=== PATIENT | female | born 1970 | race Caucasian/White ===

== ENCOUNTER → 2016-06-01 | Outpatient (CLI) | payer OTHER ==
[2016-06-01 15:30] LABS: FREE T4 1.33 NG/DL (0.76-1.46)
== END ==
LOC: M WUC 12:13
PROVIDERS: ATTEND Physician Assistant Medical
DX: E03.9 Hypothyroidism, unspecified (principal)

== ENCOUNTER → 2016-09-27 | Outpatient (CLI) | payer OTHER ==
[2016-09-27 12:32] LABS: FREE T4 0.99 NG/DL (0.76-1.46)
== END ==
LOC: M WUC 10:06
PROVIDERS: ATTEND Physician Assistant Medical
DX: E03.9 Hypothyroidism, unspecified (principal)

== ENCOUNTER 2017-04-11 11:25 | Emergency (ER) | payer OTHER ==
[~2017-04-11] VITALS: Ht 165.1 cm; Wt 89.5 kg
[2017-04-11] MEDS ORDERED: VITA100067 PO (11:35)
[2017-04-11] MEDS ORDERED: OMEP20CA3 PO (11:35)
[2017-04-11] MEDS ORDERED: ZOLO50TA PO (11:35)
[2017-04-11] MEDS ORDERED: LEVO75TA4 PO (11:35)
[2017-04-11] MEDS ORDERED: methylPREDNISolone INJ 125 MG/2 ML VIAL (J2930) IM ONE (12:45)
--- NOTE | 2017-04-11 13:27 | REP ---
LUMBOSACRAL SPINE: Five views of the lumbosacral spine performed. No compression fracture seen. There is no spondylolysis or spondylolisthesis. There is mild diffuse spurring. There is mild disc space narrowing at L3-4 and L4-5. There is sclerosis at the posterior facet joints. The posterior elements are intact. IMPRESSION: Mild degenerative changes. No fracture or dislocation. Signed by Inocencio Calzada MD 04/11/2017 04:55 P
[2017-04-11] MEDS ORDERED: VALI5TAB PO (13:44)
[2017-04-11] MEDS ORDERED: PRED20TA PO (13:44)
[2017-04-11 14:04] VITALS: BP 115/71
== END 2017-04-11 14:07 | disposition home or self-care (01) ==
LOC: M ED 11:25
DX: S39.012A Strain of muscle, fascia and tendon of lower back, initial encounter (principal); M62.830 Muscle spasm of back; E03.9 Hypothyroidism, unspecified; F33.9 Major depressive disorder, recurrent, unspecified; M51.9 Unspecified thoracic, thoracolumbar and lumbosacral intervertebral disc disorder; F17.210 Nicotine dependence, cigarettes, uncomplicated; Z79.899 Other long term (current) drug therapy; Z88.2 Allergy status to sulfonamides; X58.XXXA Exposure to other specified factors, initial encounter; Y92.89 Other specified places as the place of occurrence of the external cause; Y93.89 Activity, other specified; Y99.8 Other external cause status
CPT/HCPCS: 72110; 96372; 99283; J2930; J3360

== ENCOUNTER 2017-09-24 10:39 | Emergency (ER) | payer OTHER ==
[2017-09-24] MEDS: PERCOCET 5MG/325MG TAB PO (11:28)
[2017-09-24] MEDS: METHOCARBAMOL 750 MG TAB PO (11:28)
== END 2017-09-24 11:59 | disposition home or self-care (01) ==
LOC: M ED 10:39
DX: S39.012A Strain of muscle, fascia and tendon of lower back, initial encounter (principal); X50.0XXA Overexertion from strenuous movement or load, initial encounter; Y92.89 Other specified places as the place of occurrence of the external cause; M54.9 Dorsalgia, unspecified; G89.29 Other chronic pain; K21.9 Gastro-esophageal reflux disease without esophagitis; E03.9 Hypothyroidism, unspecified; Z88.2 Allergy status to sulfonamides; F17.210 Nicotine dependence, cigarettes, uncomplicated; Z79.899 Other long term (current) drug therapy
CPT/HCPCS: 99283

== ENCOUNTER → 2018-01-17 | Outpatient (REF) | payer OTHER | LOC: M SFHCLERA 15:30 | DX: J02.9 Acute pharyngitis, unspecified (principal) ==

== ENCOUNTER → 2018-03-18 | Outpatient (CLI) | payer OTHER | LOC: M WHC 15:31 | DX: Z12.31 Encounter for screening mammogram for malignant neoplasm of breast (principal) | CPT/HCPCS: 77067 ==

== ENCOUNTER 2018-04-06 11:27 | Emergency (ER) | payer OTHER | END 2018-04-06 12:34 | disposition home or self-care (01) | LOC: M ED 11:27 | DX: S43.102A Unspecified dislocation of left acromioclavicular joint, initial encounter (principal); W50.0XXA Accidental hit or strike by another person, initial encounter; Y92.89 Other specified places as the place of occurrence of the external cause; Y99.0 Civilian activity done for income or pay; E03.9 Hypothyroidism, unspecified; K21.9 Gastro-esophageal reflux disease without esophagitis; F33.9 Major depressive disorder, recurrent, unspecified; M54.9 Dorsalgia, unspecified; Z79.899 Other long term (current) drug therapy; Z79.890 Hormone replacement therapy; Z88.2 Allergy status to sulfonamides; Z91.048 Other nonmedicinal substance allergy status | CPT/HCPCS: 73030 ==

== ENCOUNTER 2018-07-03 12:25 | Emergency (ER) | payer OTHER, BC ==
[~2018-07-03] VITALS: Ht 170.2 cm; Wt 90.9 kg
[~2018-07-03 12:25] MED LIST: LEVO175T2; LEVO75TA4 PO; NORCOTAB PO; OMEP20CA3 PO; OMEP40CA2; PERC5TAB12 PO; PRED20TA PO; ROBA500T PO; SERT-138 PO; VALI5TAB PO; VITA100067 PO; ZOLO50TA PO
[2018-07-03] MEDS ORDERED: VITA100072 PO (12:46)
--- NOTE | 2018-07-03 12:54 | REP ---
CT Head without contrast HISTORY: Left side weakness COMPARISON: None There is no intraparenchymal hemorrhage, acute infarct, mass or midline shift. The ventricular system is normal in appearance. There is no extra cerebral collection. There is no fracture. The visualized sinuses are clear. IMPRESSION: There is no intracranial lesion. Electronically Signed by Nato Benavides MD 07/03/2018 12:45 P
[2018-07-03 13:22] LABS: BASO # 0.1 10^3/uL (0.0-0.2); BASO % 0.6 % (0.0-1.0); EOS # 0.3 10^3/uL (0.0-0.50); EOS % 3.1 % (0.0-3.0); HEMATOCRIT 41.4 % (36.0-47.0); HEMOGLOBIN 13.9 g/dl (12.0-15.5); LYMPH # 3.5 10^3/uL (1.5-4.5); MEAN CORPUSCULAR HEMOGLOBIN 30.5 pg (27.0-33.0); MEAN CORPUSCULAR HGB CONC 33.6 g/dl (32.0-36.5); MEAN CORPUSCULAR VOLUME 90.8 fl (80.0-96.0); MONO # 0.8 10^3/uL (0.0-0.8); MONO % 7.7 % (0.0-5.0); NEUTROPHILS # 5.1 10^3/uL (1.8-7.7); NEUTROPHILS % 52.2 % (36.0-66.0); PLATELET COUNT, AUTOMATED 338 10^3/uL (150-450); RED BLOOD COUNT 4.56 10^6/uL (4.00-5.40); WHITE BLOOD COUNT 9.7 10^3/uL (4.0-10.0)
--- NOTE | 2018-07-03 13:33 | REP ---
PORTABLE CHEST: AP portable view of the chest was performed. There is minor linear fibro atelectasis in each lung base with no evidence of infiltrate. Heart is normal in size. Mediastinal silhouette is unremarkable. Visualized osseous structures are intact. Electronically Signed by Inocencio Calzada MD 07/03/2018 05:31 P
[2018-07-03 13:46] LABS: BLOOD UREA NITROGEN 13 MG/DL (7-18); CALCIUM LEVEL 9.1 MG/DL (8.5-10.1); CARBON DIOXIDE LEVEL 25 MEQ/L (21-32); CHLORIDE LEVEL 109 MEQ/L (98-107); CPK CREATINE PHOSPHOKINASE 147 U/L (26-192); CREATININE FOR GFR 0.89 MG/DL (0.55-1.30); GLOMERULAR FILTRATION RATE > 60.0 (>58); GLUCOSE, FASTING 89 MG/DL (70-100); MB/CK RELATIVE INDEX 1.02 (< OR =4); POTASSIUM SERUM 4.2 MEQ/L (3.5-5.1); SODIUM LEVEL 140 MEQ/L (136-145); TROPONIN I 0.02 NG/ML (< 0.10)
[2018-07-03 13:48] LABS: INR 0.9; PROTHROMBIN TIME 12.2 SECONDS (12.1-14.4)
[2018-07-03 13:51] LABS: PARTIAL THROMBOPLASTIN TIME 30.2 SECONDS (25.4-37.6)
--- NOTE | 2018-07-03 15:26 | REP ---
MRA BRAIN WITHOUT CONTRAST: HISTORY: Infarction. 3D [id number] MR angiography was performed at the level of the [place]. There is no aneurysm, arteriovenous malformation or atherosclerotic lesion. Major intracranial vessels are patent. The vertebral arteries are equal in size. IMPRESSION:Normal MRA brain. Electronically Signed by Nato Benavides MD 07/03/2018 03:37 P
--- NOTE | 2018-07-03 15:33 | REP ---
MR BRAIN WITHOUT CONTRAST: HISTORY: Infarction. COMPARISON: CT 07/03/2018. Several punctate areas of increased signal intensity on T2-weighted images are present in the periventricular and subcortical white matter and rosa isela. This represents small vessel ischemic disease. There is no intraparenchymal hemorrhage, infarct, mass or midline shift. The sella turcica is partially empty. The ventricular system is normal in appearance. There is no extracerebral collection. The sinuses are clear. IMPRESSION: Minimal small vessel ischemic disease. Electronically Signed by Nato Benavides MD 07/03/2018 03:38 P
[2018-07-03 15:48] VITALS: BP 133/79
--- NOTE | 2018-07-03 20:57 | ECGEPIP ---
Stationary ECG Study [facility] [place] - ED Test Date: 2018-07-03 Pat Name: JIMMY ROSS Department: Room: - Gender: F [employer] Analyst: TC : 1970 Requested By: ONDINA Crum Order Number: [id number] Reading MD: Jeannette Cunningham Measurements Intervals [place] Rate: 71 P: 40 VT: 174 QRS: 13 QRSD: 110 T: 31 QT: 396 QTc: 431 Interpretive Statements SINUS RHYTHM INCOMPLETE RIGHT BUNDLE BRANCH BLOCK NO PRIOR FOR COMPARISON Electronically Signed On 07-03-2018 20:57:09 EST by Jeannette Cunningham
== END 2018-07-03 16:04 | disposition home or self-care (01) ==
LOC: M ED 12:25
DX: R20.9 Unspecified disturbances of skin sensation (principal); I45.19 Other right bundle-branch block; K21.9 Gastro-esophageal reflux disease without esophagitis; M54.9 Dorsalgia, unspecified; F32.9 Major depressive disorder, single episode, unspecified; Z72.0 Tobacco use; Z79.899 Other long term (current) drug therapy; Z88.2 Allergy status to sulfonamides; Z91.89 Other specified personal risk factors, not elsewhere classified

== ENCOUNTER 2018-11-08 18:39 | Emergency (ER) | payer OTHER, BC ==
[~2018-11-08] VITALS: Ht 167.6 cm; Wt 86.4 kg
[~2018-11-08 18:39] MED LIST changes: +HYDR-3715 PO; +IBUP200C25 PO; +IBUP80TA PO; +NORC1TAB7 PO; -NORCOTAB PO; +VITA100018 PO
[2018-11-08] MEDS ORDERED: BUPR150T3 (18:44)
[2018-11-08] MEDS ORDERED: GABA-843 (18:44)
[2018-11-08] MEDS ORDERED: diazePAM 5 MG TAB PO ONE (19:30)
[2018-11-08] MEDS ORDERED: KETOROLAC 60 MG/2 ML VIAL (J1885) IM ONE (19:30)
[2018-11-08 22:04] VITALS: BP 132/68
--- NOTE | 2018-11-10 09:18 | REP ---
LUMBAR SPINE CT STUDY: REPEAT DICTATION. HISTORY: Low back pain. Lifting injury. Left radicular pain. Preliminary report is provided at time of examination by [facility]. Comparison radiographs are from April 11, 2017. TECHNIQUE: Helical scanning is acquired. 4 mm axial images are reformatted. Coronal and sagittal MPR images are generated. CT FINDINGS: Lumbar vertebral body heights are preserved. No fracture or collapse is seen. There is mild diffuse discogenic spurring anteriorly at each lumbar level as seen on the radiographs. Alignment is normal. Pedicles and posterior elements are intact. There is no evidence of spondylolysis or spondylolisthesis. The visualized SI joints and upper sacrum are unremarkable. Axial and sagittal images at the L1-2 level show no significant abnormality. At L2-3, there is mild central disc bulging. Canal size is borderline. At L3-4, there is mild diffuse disc bulging and borderline canal size. No focal disc protrusion or neural foraminal narrowing. At L4-5 , there is mild diffuse disc bulging with a triangular shape to the thecal sac. Borderline canal size. No focal disc herniation is seen. There is mild facet hypertrophy bilaterally at L4-5, right more so than left. At L5-S1, there is mild facet hypertrophy. No other finding. IMPRESSION: Degenerative spondylosis changes. Borderline canal size as above. No acute bony abnormality. Electronically Signed by Keon Mcginnis MD 11/10/2018 10:26 A
--- NOTE | 2018-11-10 12:46 | ED PDOC ---
Post-Departure Follow-Up levon lamas faxed formalmreport of ct ls spine for fu Guzman Quezada MD Nov 10, 2018 12:46
== END 2018-11-08 22:05 | disposition home or self-care (01) ==
LOC: M ED 18:39
DX: M48.07 Spinal stenosis, lumbosacral region (principal); E03.9 Hypothyroidism, unspecified; K21.9 Gastro-esophageal reflux disease without esophagitis; F33.9 Major depressive disorder, recurrent, unspecified; Z79.899 Other long term (current) drug therapy; Z79.890 Hormone replacement therapy; Z88.2 Allergy status to sulfonamides; F17.210 Nicotine dependence, cigarettes, uncomplicated
CPT/HCPCS: 72131; 96372; 99283; J1885

== ENCOUNTER 2019-02-04 11:45 | Emergency (ER) | payer BC, OTHER ==
[~2019-02-04] VITALS: Ht 167.6 cm; Wt 89.1 kg
[~2019-02-04 11:45] MED LIST changes: +BUPR150T3; +GABA-843; -OMEP20CA3 PO; +OMEP20CA4 PO
[2019-02-04] MEDS ORDERED: ESCI20TA (11:59)
[2019-02-04] MEDS ORDERED: ALPR0.25 (11:59)
[2019-02-04 13:24] LABS: BASO # 0.1 10^3/uL (0.0-0.2); BASO % 0.6 % (0.0-1.0); EOS # 0.1 10^3/uL (0.0-0.5); EOS % 0.7 % (0.0-3.0); HEMOGLOBIN 14.2 g/dl (12.0-15.5); LYMPH # 2.2 10^3/uL (1.5-5.0); LYMPH % 21.6 % (24.0-44.0); MEAN CORPUSCULAR HEMOGLOBIN 31.5 pg (27.0-33.0); MEAN CORPUSCULAR HGB CONC 34.6 g/dl (32.0-36.5); MEAN CORPUSCULAR VOLUME 90.9 fl (80.0-96.0); MONO # 0.3 10^3/uL (0.0-0.8); MONO % 3.3 % (0.0-5.0); NEUTROPHILS # 7.4 10^3/uL (1.5-8.5); NEUTROPHILS % 73.4 % (36.0-66.0); PLATELET COUNT, AUTOMATED 318 10^3/uL (150-450); RED BLOOD COUNT 4.51 10^6/uL (4.00-5.40); WHITE BLOOD COUNT 10.1 10^3/uL (4.0-10.0)
[2019-02-04 13:44] LABS: ALBUMIN 4.1 GM/DL (3.2-5.2); ALT/SGPT 35 U/L (12-78); BILIRUBIN,DIRECT < 0.1 MG/DL (0.0-0.2); BILIRUBIN,TOTAL 0.3 MG/DL (0.2-1.0); BLOOD UREA NITROGEN 9 MG/DL (7-18); CALCIUM LEVEL 9.2 MG/DL (8.5-10.1); CARBON DIOXIDE LEVEL 28 MEQ/L (21-32); CHLORIDE LEVEL 109 MEQ/L (98-107); CREATININE FOR GFR 0.88 MG/DL (0.55-1.30); GLOMERULAR FILTRATION RATE > 60.0 (>58); GLUCOSE, FASTING 97 MG/DL (70-100); POTASSIUM SERUM 4.4 MEQ/L (3.5-5.1); SODIUM LEVEL 143 MEQ/L (136-145); TOTAL PROTEIN 6.7 GM/DL (6.4-8.2)
[2019-02-04 14:15] VITALS: BP 122/75
--- NOTE | 2019-02-04 14:18 | REP ---
CHEST, TWO VIEWS: COMPARISON: 07/03/2018 There is no evidence of acute infiltrate. No pleural effusion is seen. The heart is normal in size. The mediastinal silhouette is unremarkable. The visualized osseous structures are intact. IMPRESSION: No acute pulmonary disease. Electronically Signed by Inocencio Calzada MD 02/05/2019 09:33 A
[2019-02-04] MEDS ORDERED: FLON1SPR NARES (14:26)
[2019-02-04] MEDS ORDERED: BENA25CA4 PO (14:26)
[2019-02-04] MEDS ORDERED: PRED10TA2 PO (14:26)
[2019-02-04] MEDS ORDERED: PEPC1TAB5 PO (14:26)
== END 2019-02-04 14:52 | disposition home or self-care (01) ==
LOC: EDBD 11:45 → M ED 11:45
DX: T36.0X1A Poisoning by penicillins, accidental (unintentional), initial encounter (principal); R21 Rash and other nonspecific skin eruption; L50.9 Urticaria, unspecified; R06.02 Shortness of breath; X58.XXXA Exposure to other specified factors, initial encounter; Y92.89 Other specified places as the place of occurrence of the external cause; J06.9 Acute upper respiratory infection, unspecified; K21.9 Gastro-esophageal reflux disease without esophagitis; F17.210 Nicotine dependence, cigarettes, uncomplicated; Z88.2 Allergy status to sulfonamides; Z79.899 Other long term (current) drug therapy

== ENCOUNTER 2019-04-03 17:46 | Emergency (ER) | payer BC, OTHER ==
[~2019-04-03] VITALS: Ht 167.6 cm; Wt 90.0 kg
[~2019-04-03 17:46] MED LIST changes: +ALPR0.25; +BENA25CA4 PO; +ESCI20TA; +FLON1SPR NARES; -OMEP40CA2; +OMEP40CA97; +PEPC1TAB5 PO; +PRED10TA2 PO
[2019-04-03 17:47] VITALS: BP 129/93
[2019-04-03] MEDS ORDERED: VALA1TAB2 PO (18:01)
[2019-04-03] MEDS ORDERED: NORCO, ANEXSIA 5/325MG TABLET (HYDROcodone/ACETAMINOPHEN) PO ONE (18:15)
--- NOTE | 2019-04-03 18:34 | REP ---
Right ankle four views: There are no comparisons. Suspect there is soft tissue edema laterally. This should be confirmed clinically. There is no fracture or dislocation. The mortise is symmetric. Mineralization is normal. There are no calcifications or foreign bodies. There is a tiny calcaneal plantar spur. Electronically Signed by Inocencio Roque MD 04/03/2019 06:25 P
== END 2019-04-03 19:42 | disposition home or self-care (01) ==
LOC: M ED 17:46
DX: S93.401A Sprain of unspecified ligament of right ankle, initial encounter (principal); Y04.8XXA Assault by other bodily force, initial encounter; Y92.198 Other place in other specified residential institution as the place of occurrence of the external cause; Y99.0 Civilian activity done for income or pay; K21.9 Gastro-esophageal reflux disease without esophagitis; F32.9 Major depressive disorder, single episode, unspecified; F17.210 Nicotine dependence, cigarettes, uncomplicated; Z88.0 Allergy status to penicillin; Z88.2 Allergy status to sulfonamides; Z91.048 Other nonmedicinal substance allergy status; Z79.899 Other long term (current) drug therapy

== ENCOUNTER → 2019-07-01 | Outpatient (CLI) | payer BC ==
[~2019-07-01] MED LIST changes: +OMEP1CAP73 PO; -OMEP20CA4 PO; +VALA1TAB64 PO
== END ==
LOC: M SLEEP 19:45
PROVIDERS: ATTEND Nurse Practitioner Adult Health
DX: G47.33 Obstructive sleep apnea (adult) (pediatric) (principal)

== ENCOUNTER → 2019-10-24 | Outpatient (CLI) | payer BC ==
[~2019-10-24] MED LIST changes: +CVS50CAP PO; +PHEN15CA PO; +VALA1TAB5 PO; -VALA1TAB64 PO; +VITA30004 PO; +VITAD1000T PO
== END ==
LOC: M LABSMTC 10:23
PROVIDERS: ATTEND Anesthesiology
DX: Z01.818 Encounter for other preprocedural examination (principal); Z11.59 Encounter for screening for other viral diseases
CPT/HCPCS: C9803; U0003

== ENCOUNTER 2019-10-27 11:49 | Day surgery (SDC) | payer BC ==
[~2019-10-27] VITALS: Ht 170.2 cm; Wt 90.7 kg
[~2019-10-27 11:49] MED LIST changes: +NS 1,000 ML IV SCH
[2019-10-27] MEDS ORDERED: propofoL 500 MG/50 ML VIAL As Ordered ONE (12:59)
[2019-10-27] MEDS ORDERED: fentaNYL 100 MCG/2 ML INJECTION (J3010) As Ordered ONE (12:59)
[2019-10-27] MEDS ORDERED: LIDOCAINE 2% 100MG/5ML SDV (FOR ANES.) As Ordered ONE (12:59)
--- NOTE | 2019-10-27 13:38 | ROOR ---
Patient Name: Gem Brown Procedure Date: 10/27/2019 12:54 PM Date of : 1970 Age: 49 Room: [facility] Gender: Female Note Status: Finalized Procedure: Upper GI endoscopy Indications: Heartburn, Suspected gastro-esophageal reflux disease Providers: Dominic Patel MD Referring MD: Edgar Fletcher Requesting Provider: Medicines: Monitored Anesthesia Care Complications: No immediate complications. Procedure: Pre-Anesthesia Assessment: - Prior to the procedure, a History and Physical was performed, and patient medications and allergies were reviewed. The patient is competent. The risks and benefits of the procedure and the sedation options and risks were discussed with the patient. All questions were answered and informed consent was obtained. Patient identification and proposed procedure were verified by the physician, the nurse and the anesthesiologist in the procedure room. Mental Status Examination: alert and oriented. Airway Examination: normal oropharyngeal airway and neck mobility. Respiratory Examination: clear to auscultation. CV Examination: normal. Prophylactic Antibiotics: The patient does not require prophylactic antibiotics. Prior Anticoagulants: The patient has taken no previous anticoagulant or antiplatelet agents. ASA Grade Assessment: II - A patient with mild systemic disease. After reviewing the risks and benefits, the patient was deemed in satisfactory condition to undergo the procedure. The anesthesia plan was to use monitored anesthesia care (MAC). Immediately prior to administration of medications, the patient was re-assessed for adequacy to receive sedatives. The heart rate, respiratory rate, oxygen saturations, blood pressure, adequacy of pulmonary ventilation, and response to care were monitored throughout the procedure. The physical status of the patient was re-assessed after the procedure. The Endoscope was introduced through the mouth, and advanced to the second part of duodenum. The upper GI endoscopy was accomplished without difficulty. The patient tolerated the procedure well. Findings: The Z-line was irregular and was found 35 cm from the incisors. A small hiatal hernia was present. Scattered mild inflammation characterized by erythema, friability and granularity was found in the gastric antrum. Biopsies were taken with a cold forceps for Helicobacter pylori testing. Verification of patient identification for the specimen was done by the physician and nurse using the patient's name, date and medical record number. Estimated blood loss was minimal. The duodenal bulb and second portion of the duodenum were normal. Impression: - Z-line irregular, 35 cm from the incisors. - Small hiatal hernia. - Gastritis. Biopsied. - Normal duodenal bulb and second portion of the duodenum. Recommendation: - Patient has a contact number available for emergencies. The signs and symptoms of potential delayed complications were discussed with the patient. Return to normal activities tomorrow. Written discharge instructions were provided to the patient. - Resume previous diet. - Follow an antireflux regimen. - Await pathology results. - Telephone GI clinic for pathology results in 2 weeks. - Return to primary care physician. Dominic Patel MD Dominic Patel MD 10/27/2019 1:38:30 PM Electronically signed by Dominic Patel MD Number of Addenda: 0 Note Initiated On: 10/27/2019 12:54 PM Estimated Blood Loss: Estimated blood loss was minimal.
[2019-10-27 13:45] VITALS: BP_SYST 132
--- NOTE | 2019-10-27 14:24 | ROOR ---
Patient Name: Gem Brown Procedure Date: 10/27/2019 12:55 PM Date of : 1970 Age: 49 Room: [facility] Gender: Female Note Status: Finalized Procedure: Colonoscopy Indications: Screening for colorectal malignant neoplasm Providers: Dominic Patel MD Referring MD: Edgar Fletcher Requesting Provider: Medicines: Monitored Anesthesia Care Complications: No immediate complications. Procedure: Pre-Anesthesia Assessment: - Prior to the procedure, a History and Physical was performed, and patient medications and allergies were reviewed. The patient is competent. The risks and benefits of the procedure and the sedation options and risks were discussed with the patient. All questions were answered and informed consent was obtained. Patient identification and proposed procedure were verified by the physician, the nurse and the anesthesiologist in the procedure room. Mental Status Examination: alert and oriented. Airway Examination: normal oropharyngeal airway and neck mobility. Respiratory Examination: clear to auscultation. CV Examination: normal. Prophylactic Antibiotics: The patient does not require prophylactic antibiotics. Prior Anticoagulants: The patient has taken no previous anticoagulant or antiplatelet agents. ASA Grade Assessment: II - A patient with mild systemic disease. After reviewing the risks and benefits, the patient was deemed in satisfactory condition to undergo the procedure. The anesthesia plan was to use monitored anesthesia care (MAC). Immediately prior to administration of medications, the patient was re-assessed for adequacy to receive sedatives. The heart rate, respiratory rate, oxygen saturations, blood pressure, adequacy of pulmonary ventilation, and response to care were monitored throughout the procedure. The physical status of the patient was re-assessed after the procedure. The Colonoscope was introduced through the anus and advanced to the terminal ileum, with identification of the appendiceal orifice and IC valve. The colonoscopy was performed without difficulty. The patient tolerated the procedure well. The quality of the bowel preparation was good except the ascending colon was poor. The terminal ileum, ileocecal valve, appendiceal orifice, and rectum were photographed. Scope insertion time was 3 minutes. Scope withdrawal time was 9 minutes. The total duration of the procedure was 12 minutes. Findings: The perianal and digital rectal examinations were normal. The terminal ileum appeared normal. Copious quantities of stool was found from transverse colon to cecum, interfering with visualization. Lavage of the area was performed using a large amount of sterile water, resulting in incomplete clearance with fair visualization. Two sessile polyps were found in the descending colon. The polyps were 5 to 6 mm in size. These polyps were removed with a cold snare. Resection and retrieval were complete. Verification of patient identification for the specimen was done by the physician and nurse using the patient's name, date and medical record number. Estimated blood loss was minimal. Non-bleeding external and internal hemorrhoids were found during retroflexion. The hemorrhoids were medium-sized. Impression: - The examined portion of the ileum was normal. - Stool from transverse colon to cecum. - Two 5 to 6 mm polyps in the descending colon, removed with a cold snare. Resected and retrieved. - Non-bleeding external and internal hemorrhoids. Recommendation: - Patient has a contact number available for emergencies. The signs and symptoms of potential delayed complications were discussed with the patient. Return to normal activities tomorrow. Written discharge instructions were provided to the patient. - High fiber diet. - Continue present medications. - Await pathology results. - Repeat colonoscopy in 1 year because the bowel preparation was poor and for surveillance based on pathology results. - Telephone GI clinic for pathology results in 2 weeks. - Return to GI clinic in 1 year. - Return to primary care physician. Dominic Patel MD Dominic Patel MD 10/27/2019 2:24:04 PM Electronically signed by Dominic Patel MD Number of Addenda: 0 Note Initiated On: 10/27/2019 12:55 PM Estimated Blood Loss: Estimated blood loss was minimal.
== END 2019-10-27 14:09 | disposition home or self-care (01) ==
LOC: M OPP 11:49
PROVIDERS: ATTEND Internal Medicine Gastroenterology
DX: Z12.11 Encounter for screening for malignant neoplasm of colon (principal); K63.5 Polyp of colon; K64.8 Other hemorrhoids; K22.8 Other specified diseases of esophagus; K44.9 Diaphragmatic hernia without obstruction or gangrene; K29.70 Gastritis, unspecified, without bleeding; R12 Heartburn; F17.210 Nicotine dependence, cigarettes, uncomplicated; G47.30 Sleep apnea, unspecified; Z79.899 Other long term (current) drug therapy; Z88.0 Allergy status to penicillin; Z88.2 Allergy status to sulfonamides
CPT/HCPCS: 43239; 45385; 88305; J3010

== ENCOUNTER 2020-03-11 08:03 | Emergency (ER) | payer BC ==
[~2020-03-11] VITALS: Ht 172.7 cm; Wt 97.7 kg
[~2020-03-11 08:03] MED LIST changes: +D31000TA2 PO; -NS 1,000 ML IV SCH; -VITAD1000T PO
[2020-03-11] MEDS ORDERED: B-12100010 PO (08:12)
[2020-03-11] MEDS ORDERED: LIDOCAINE 5% (LIDODERM) PATCH TD ONE (09:15)
[2020-03-11] MEDS ORDERED: KETOROLAC 60MG 2ML VIAL IM ONE (09:15)
[2020-03-11] MEDS ORDERED: methylPREDNISolone 125MG 2ML VIAL IM ONE (09:15)
[2020-03-11 10:01] VITALS: BP 118/73
[2020-03-11] MEDS ORDERED: **NOTE PATIENT COMMENT** MISC XX ONE (21:00)
== END 2020-03-11 10:03 | disposition home or self-care (01) ==
LOC: M ED 08:03
DX: M54.5 Low back pain (principal); G89.29 Other chronic pain; F17.210 Nicotine dependence, cigarettes, uncomplicated; Z88.0 Allergy status to penicillin; Z88.2 Allergy status to sulfonamides; Z79.899 Other long term (current) drug therapy
CPT/HCPCS: 96372; 99283; J1885; J2930

== ENCOUNTER → 2020-04-26 | Outpatient (CLI) | payer BC ==
[~2020-04-26] MED LIST changes: +B-12100010 PO
--- NOTE | 2020-04-28 06:25 | REP ---
INDICATION: CONTUSION OF LEFT WRIST COMPARISON: None. TECHNIQUE: AP, lateral, bilateral oblique views left wrist. FINDINGS: There is no evidence for acute fracture or dislocation. There appears to be an 8 mm cystic appearing lesion within the triquetrum displaying internal septations and mild sclerotic borders. Finding is likely benign and differential diagnosis includes but is not limited to aneurysmal bone cyst as well as interosseous ganglion. IMPRESSION: No obvious acute fracture or dislocation. Complex cystic lesion in the triquetrum. No prior examinations are available for comparison. Consider MRI for further investigation. <Electronically signed by Lebron Houston > 04/28/20 [id number]
== END ==
LOC: M WUC 12:56
PROVIDERS: ATTEND Physician Assistant
DX: M85.442 Solitary bone cyst, left hand (principal); S60.212A Contusion of left wrist, initial encounter; X58.XXXA Exposure to other specified factors, initial encounter; Y92.9 Unspecified place or not applicable

== ENCOUNTER 2020-08-30 13:14 | Emergency (ER) | payer BC ==
[~2020-08-30] VITALS: Ht 170.2 cm; Wt 89.2 kg
[~2020-08-30 13:14] MED LIST changes: +BUPR150T12; -BUPR150T3; -ESCI20TA; +ESCI20TA16; +GABA-282; -GABA-843
[2020-08-30] MEDS ORDERED: OMEP-218 (13:29)
[2020-08-30] MEDS ORDERED: VENL75CA47 (13:29)
[2020-08-30] MEDS ORDERED: PHEN-239 (13:29)
[2020-08-30] MEDS ORDERED: LEVO150T7 (13:29)
[2020-08-30] MEDS ORDERED: CYCL-707 (13:30)
[2020-08-30] MEDS ORDERED: IBUP-1022 PO (14:39)
[2020-08-30 14:45] VITALS: BP 136/88
== END 2020-08-30 15:03 | disposition home or self-care (01) ==
LOC: M ED 13:14
DX: M65.242 Calcific tendinitis, left hand (principal); F17.200 Nicotine dependence, unspecified, uncomplicated; Z88.0 Allergy status to penicillin; Z88.2 Allergy status to sulfonamides; Z79.899 Other long term (current) drug therapy

== ENCOUNTER 2020-11-27 08:22 | Emergency (ER) | payer BC, OTHER ==
[~2020-11-27] VITALS: Ht 170.2 cm; Wt 89.8 kg
[~2020-11-27 08:22] MED LIST changes: +CYCL-707; +IBUP-1022 PO; +LEVO150T7; +OMEP-218; +OMEP40CA4; -OMEP40CA97; +PHEN-239; +VENL75CA47
[2020-11-27] MEDS ORDERED: CYCLOBENZAPRINE 10MG TABLET PO ONE (10:15)
[2020-11-27] MEDS ORDERED: predniSONE 20 MG TAB PO ONE (10:15)
[2020-11-27] MEDS ORDERED: LIDOCAINE 5% (LIDODERM) PATCH TD ONE (10:15)
[2020-11-27] MEDS ORDERED: ACETAMINOPHEN 500 MG TAB PO ONE (10:15)
--- NOTE | 2020-11-27 11:22 | REP ---
INDICATION: fall COMPARISON: 07/03/2018 TECHNIQUE: Axial noncontrast images from the skull base to the vertex with coronal reformations. This CT examination was performed using the following dose reduction techniques: Automated exposure control, adjustment of mA and/or kv according to the patient's size, and use of iterative reconstruction technique. FINDINGS: The ventricles, sulci, and cisterns are normal in position and appearance. Calzada-white differentiation is maintained. No acute intracranial hemorrhage, mass/mass effect, pathology or trauma/injury. No evidence for acute infarction. No extra-axial fluid collection. Calvarium is intact. Paranasal sinuses and mastoid air cells are clear. IMPRESSION: Normal noncontrast head CT. No evidence for acute intracranial pathology or trauma/injury. <Electronically signed by Lebron Houston > 11/27/20 111
--- NOTE | 2020-11-27 11:30 | REP ---
INDICATION: fall COMPARISON: None. TECHNIQUE: Axial noncontrast images from the skull base to the thoracic inlet with coronal and sagittal re-formations This CT examination was performed using the following dose reduction techniques: Automated exposure control, adjustment of mA and/or kv according to the patient's size, and use of iterative reconstruction technique. FINDINGS: Alignment is maintained. There is no evidence for acute fracture/compression injury or subluxation. Moderate to advanced multilevel degenerative spondylosis centered at C5-6. Findings include osteophytosis, endplate sclerosis, disc space narrowing, and facet arthropathy. Spinal canal is patent. Spinous processes are intact. Paravertebral soft tissues are within normal limits. IMPRESSION: Moderate to advanced multilevel degenerative spondylosis. No acute fracture/compression injury or subluxation. <Electronically signed by Lebron Houston > 11/27/20 [id number]
--- NOTE | 2020-11-27 11:33 | REP ---
INDICATION: fall. COMPARISON: None. TECHNIQUE: Axial noncontrast images of the lumbosacral spine from mid T12 through mid sacrum with coronal and sagittal reformations. This CT examination was performed using the following dose reduction techniques: Automated exposure control, adjustment of mA and/or kv according to the patient's size, and use of iterative reconstruction technique. FINDINGS: Alignment and lordosis maintained. Vertebral bodies are intact. Posterior elements and spinous processes are intact. There is no evidence for acute fracture/compression injury or subluxation. The spinal canal is patent. The paravertebral soft tissues are normal. Mild/moderate chronic age-related degenerative changes are appreciated. Findings include posterior disc bulges at the L4-5 and L5-S1 levels with facet arthropathy and ligamentous hypertrophy causing mild associated canal stenosis. IMPRESSION: No evidence for acute fracture/compression injury or subluxation. Moderate degenerative spondylosis at L4-5 and L5-S1. <Electronically signed by Lebron Houston > 11/27/20 1126
[2020-11-27] MEDS ORDERED: LIDO5DIS41 TOP (12:29)
[2020-11-27] MEDS ORDERED: BACL10TA2 PO (12:30)
[2020-11-27] MEDS ORDERED: MEDR4PAK PO (12:30)
[2020-11-27 12:39] VITALS: BP 156/87
[2020-11-27] MEDS ORDERED: **NOTE PATIENT COMMENT** MISC XX SCH (21:00)
== END 2020-11-27 12:40 | disposition home or self-care (01) ==
LOC: M ED 08:22
DX: S39.012A Strain of muscle, fascia and tendon of lower back, initial encounter (principal); S16.1XXA Strain of muscle, fascia and tendon at neck level, initial encounter; W22.09XA Striking against other stationary object, initial encounter; Y92.099 Unspecified place in other non-institutional residence as the place of occurrence of the external cause; Y93.9 Activity, unspecified; Y99.0 Civilian activity done for income or pay; M54.42 Lumbago with sciatica, left side; M47.812 Spondylosis without myelopathy or radiculopathy, cervical region; M47.816 Spondylosis without myelopathy or radiculopathy, lumbar region; M47.817 Spondylosis without myelopathy or radiculopathy, lumbosacral region; K21.9 Gastro-esophageal reflux disease without esophagitis; E03.9 Hypothyroidism, unspecified; Z86.16 Personal history of COVID-19; F41.9 Anxiety disorder, unspecified; F33.9 Major depressive disorder, recurrent, unspecified; F17.200 Nicotine dependence, unspecified, uncomplicated; Z88.0 Allergy status to penicillin; Z88.2 Allergy status to sulfonamides; Z79.899 Other long term (current) drug therapy; Z79.890 Hormone replacement therapy
CPT/HCPCS: 70450; 72125; 72131; 99283; J7512

== ENCOUNTER → 2021-05-24 | Outpatient (CLI) | payer BC ==
[~2021-05-24] MED LIST changes: +BACL10TA2 PO; +LIDO5DIS41 TOP; +MEDR4PAK PO
--- NOTE | 2021-05-24 13:58 | REP ---
INDICATION: DYSPNEA COMPARISON: 02/04/2019 TECHNIQUE: PA and lateral. FINDINGS: The mediastinum and cardiac silhouette are normal. The lung cuevas are clear and without acute consolidation, effusion, or pneumothorax. The skeletal structures are intact and normal. IMPRESSION: No acute cardiopulmonary process. <Electronically signed by Lebron Houston > 05/24/21 [id number]
== END ==
LOC: M WUC 13:22
PROVIDERS: ATTEND Physician Assistant
DX: R06.00 Dyspnea, unspecified (principal)

== ENCOUNTER → 2021-07-07 | Outpatient (CLI) | payer BC, OTHER, SELFPAY ==
[~2021-07-07] MED LIST changes: +OMEP-173; -OMEP-218; -PHEN15CA PO; +PHEN15CA6 PO
== END ==
LOC: M CARPUL 09:45
PROVIDERS: ATTEND Physician Assistant
DX: R01.1 Cardiac murmur, unspecified (principal)

== ENCOUNTER 2022-01-20 09:05 | Emergency (ER) | payer OTHER ==
[~2022-01-20] VITALS: Ht 170.2 cm; Wt 90.9 kg
[~2022-01-20 09:05] MED LIST changes: -D31000TA2 PO; -LEVO150T7; +LEVO150T7 PO; +VITA100093 PO
[2022-01-20] MEDS ORDERED: NAPR220C14 PO (09:15)
[2022-01-20] MEDS ORDERED: ONDANSETRON 4MG 2ML VIAL IV ONE (09:40)
[2022-01-20] MEDS ORDERED: diphenhydrAMINE 50MG/ML VIAL (J1200) IV ONE (09:40)
[2022-01-20] MEDS ORDERED: NS 1,000 ML IV ONE (09:40)
[2022-01-20 10:14] LABS: BASO # 0.1 10^3/uL (0.0-0.2); BASO % 0.8 % (0.0-1.0); EOS # 0.3 10^3/uL (0.0-0.5); EOS % 2.7 % (0.0-3.0); HEMATOCRIT 43.4 % (36.0-47.0); HEMOGLOBIN 14.8 g/dl (12.0-15.5); LYMPH # 3.5 10^3/uL (1.5-5.0); MEAN CORPUSCULAR HEMOGLOBIN 31.3 pg (27.0-33.0); MEAN CORPUSCULAR HGB CONC 34.1 g/dl (32.0-36.5); MEAN CORPUSCULAR VOLUME 91.8 fl (80.0-96.0); MONO # 0.6 10^3/uL (0.0-0.8); MONO % 6.6 % (2.0-8.0); NEUTROPHILS # 4.7 10^3/uL (1.5-8.5); NEUTROPHILS % 51.4 % (36.0-66.0); PLATELET COUNT, AUTOMATED 289 10^3/uL (150-450); RED BLOOD COUNT 4.73 10^6/uL (4.00-5.40); WHITE BLOOD COUNT 9.2 10^3/uL (4.0-10.0)
[2022-01-20 10:40] LABS: BLOOD UREA NITROGEN 11 MG/DL (7-18); C REACTIVE PROTEIN QUANTITATIV 0.55 MG/DL (0.00-0.30); CALCIUM LEVEL 9.7 MG/DL (8.5-10.1); CARBON DIOXIDE LEVEL 30 MEQ/L (21-32); CHLORIDE LEVEL 108 MEQ/L (98-107); CREATININE FOR GFR 0.85 MG/DL (0.55-1.30); GLOMERULAR FILTRATION RATE > 60.0 (>51); GLUCOSE, FASTING 84 MG/DL (70-100); POTASSIUM SERUM 4.6 MEQ/L (3.5-5.1); SODIUM LEVEL 139 MEQ/L (136-145)
[2022-01-20 10:55] LABS: ERYTHROCYTE SEDIMENTATION RATE 2 mm/hr (0-30)
[2022-01-20 11:01] VITALS: BP 137/75
== END 2022-01-20 11:23 | disposition home or self-care (01) ==
LOC: M ED 09:05
DX: G43.909 Migraine, unspecified, not intractable, without status migrainosus (principal); E03.9 Hypothyroidism, unspecified; K21.9 Gastro-esophageal reflux disease without esophagitis; G47.33 Obstructive sleep apnea (adult) (pediatric); Z99.89 Dependence on other enabling machines and devices; Z79.899 Other long term (current) drug therapy; Z79.890 Hormone replacement therapy; Z88.0 Allergy status to penicillin; Z88.1 Allergy status to other antibiotic agents; Z88.2 Allergy status to sulfonamides; F17.200 Nicotine dependence, unspecified, uncomplicated
CPT/HCPCS: 70450; 80048; 85025; 85652; 86140; 96374; 96375; 99284; J1200; J2405

== ENCOUNTER 2022-06-26 15:50 | Inpatient (IN) | payer BC, OTHER, SELFPAY ==
[~2022-06-26] VITALS: Ht 170.2 cm; Wt 94.6 kg
[~2022-06-26 15:50] MED LIST changes: +NAPR220C14 PO
[2022-06-26] MEDS ORDERED: ALPR0.5T3 (16:04)
[2022-06-26] MEDS ORDERED: FAMO1TAB11 (16:04)
[2022-06-26] MEDS ORDERED: PREG75CA2 (16:04)
[2022-06-26] MEDS ORDERED: PANT40TA29 (16:04)
[2022-06-26] MEDS ORDERED: LEXA1TAB2 (16:04)
[2022-06-26 18:35] LABS: HEMATOCRIT 39.9 % (36.0-47.0); HEMOGLOBIN 13.7 g/dl (12.0-15.5); MEAN CORPUSCULAR HEMOGLOBIN 31.7 pg (27.0-33.0); MEAN CORPUSCULAR HGB CONC 34.3 g/dl (32.0-36.5); MEAN CORPUSCULAR VOLUME 92.4 fl (80.0-96.0); PLATELET COUNT, AUTOMATED 283 10^3/uL (150-450); RED BLOOD COUNT 4.32 10^6/uL (4.00-5.40); WHITE BLOOD COUNT 9.1 10^3/uL (4.0-10.0)
[2022-06-26 19:04] LABS: AMPHETAMINES LEVEL URINE NEGATIVE (NEGATIVE); BARBITURATES URINE NEGATIVE (NEGATIVE); BENZODIAZEPINES URINE NEGATIVE (NEGATIVE); CANNABINOIDS URINE NEGATIVE (NEGATIVE); METHADONE URINE NEGATIVE (NEGATIVE); OPIATES URINE NEGATIVE (NEGATIVE); PHENCYCLIDINE URINE NEGATIVE (NEGATIVE)
[2022-06-26 19:05] LABS: ETHYL ALCOHOL (ETHANOL) 0.003 % (0.000-0.010)
[2022-06-26 19:07] LABS: ACETAMINOPHEN LEVEL < 2.0 UG/ML (10.0-20.0); ALKALINE PHOSPHATASE 75 U/L (46-116); ALT/SGPT 33 U/L (7.0-40); AST/SGOT 26 U/L (<34); BILIRUBIN,DIRECT 0.1 MG/DL (<0.4); BILIRUBIN,TOTAL 0.3 MG/DL (0.3-1.2); BLOOD UREA NITROGEN 12 MG/DL (9-23); CALCIUM LEVEL 9.1 MG/DL (8.5-10.1); CARBON DIOXIDE LEVEL 29 MMOL/L (20-31); CHLORIDE LEVEL 109 MMOL/L (98-107); GLOMERULAR FILTRATION RATE > 60.0 (>51); GLUCOSE, FASTING 76 MG/DL (60-100); POTASSIUM SERUM 4.1 MMOL/L (3.5-5.1); SALICYLATE LEVEL < 3.0 MG/DL (<30); SODIUM LEVEL 144 MMOL/L (136-145); TOTAL PROTEIN 6.7 G/DL (5.7-8.2)
[2022-06-26 19:10] LABS: COCAINE METABOLITE URINE POSITIVE (NEGATIVE)
[2022-06-26] MEDS ORDERED: LEXA1TAB2 PO (20:15)
[2022-06-26] MEDS ORDERED: CYAN100049 PO (20:15)
[2022-06-26] MEDS ORDERED: LEVO137T2 PO (20:15)
[2022-06-26] MEDS ORDERED: PANT40TA29 PO (20:15)
[2022-06-26] MEDS ORDERED: LYRI75CA PO (20:15)
[2022-06-26] MEDS ORDERED: FAMO20TA PO (20:15)
[2022-06-26] MEDS ORDERED: ALPR0.5T3 PO (20:15)
[2022-06-26] MEDS ORDERED: IBUP80TA PO (20:17)
[2022-06-26] MEDS ORDERED: HOME MED LIST COMPLETE! XX SCH (20:55)
[2022-06-26] MEDS ORDERED: ACETAMINOPHEN TAB 650MG DOSE (2X325MG) PO ONE (21:20)
[2022-06-26] MEDS: PREGABALIN 75 MG CAP(LYRICA) PO SCH (21:27)
[2022-06-27 04:24] LABS: RSV AMPLIFICATION NEGATIVE (NEGATIVE)
[2022-06-27] MEDS ORDERED: LEVOTHYROXINE 137MCG TABLET (0.137MG) PO SCH (06:00)
[2022-06-27] MEDS ORDERED: IBUPROFEN 400MG TAB PO PRN (08:35)
[2022-06-27] MEDS ORDERED: ALPRAZolam 0.5 MG TAB PO PRN ×2 (08:35→13:45)
[2022-06-27] MEDS ORDERED: FAMOTIDINE 20 MG TAB PO PRN ×2 (08:35→13:45)
[2022-06-27] MEDS ORDERED: PANTOPRAZOLE 40MG TAB (PROTONIX) PO SCH (09:00)
[2022-06-27] MEDS ORDERED: PREGABALIN 75 MG CAP(LYRICA) PO SCH (09:00)
[2022-06-27] MEDS ORDERED: ESCITALOPRAM OXALATE 10 MG TAB (LEXAPRO) PO SCH (09:00)
[2022-06-27] MEDS ORDERED: ACETAMINOPHEN 325 MG TAB As Ordered ONE (09:54)
[2022-06-27] MEDS ORDERED: ACETAMINOPHEN 325 MG TAB PO ONE (09:55)
[2022-06-27] MEDS: PREGABALIN 75 MG CAP(LYRICA) PO SCH ×2 (10:47→21:33)
[2022-06-27] MEDS ORDERED: IBUPROFEN 800 MG TAB PO PRN (13:45)
[2022-06-27] MEDS ORDERED: MOM 30ML SUSPENSION UDC PO PRN (13:45)
[2022-06-27] MEDS: CYANOCOBALAMIN 500 MCG TAB PO SCH (14:33)
[2022-06-27] MEDS: VITAMIN D 1,000 INTERNATIONAL UNITS TABLET PO SCH (14:33)
[2022-06-27] MEDS ORDERED: ACETAMINOPHEN TAB 650MG DOSE (2X325MG) PO PRN (16:00)
[2022-06-27 16:22] VITALS: BP 127/82
[2022-06-27] MEDS: traZODone 50 MG TAB PO PRN (21:33)
[2022-06-28] MEDS ORDERED: LEVOTHYROXINE 137MCG TABLET (0.137MG) PO SCH (06:00)
[2022-06-28 07:02] VITALS: BP 146/64
[2022-06-28] MEDS: VITAMIN D 1,000 INTERNATIONAL UNITS TABLET PO SCH (09:21)
[2022-06-28] MEDS: PANTOPRAZOLE 40MG TAB (PROTONIX) PO SCH (09:21)
[2022-06-28] MEDS: PREGABALIN 75 MG CAP(LYRICA) PO SCH ×2 (09:21→20:39)
[2022-06-28] MEDS: ESCITALOPRAM OXALATE 10 MG TAB (LEXAPRO) PO SCH (09:21)
[2022-06-28] MEDS: CYANOCOBALAMIN 500 MCG TAB PO SCH (09:21)
[2022-06-28] MEDS: NICOTINE 14 MG/24 HR TRANSDERMAL TD PRN (17:24)
[2022-06-28 18:23] VITALS: BP 144/87
[2022-06-28] MEDS: traZODone 50 MG TAB PO PRN (20:39)
[2022-06-28] MEDS: ARIPiprazole 2 MG TAB PO SCH (20:39)
[2022-06-29] MEDS: MAALOX 30 ML SUSP *UDC PO PRN ×2 (02:36→20:54)
[2022-06-29] MEDS: LEVOTHYROXINE 150MCG TABLET (0.15MG) PO SCH (05:56)
[2022-06-29 06:03] VITALS: BP 124/83
[2022-06-29 07:38] LABS: CHOLESTEROL RISK RATIO 5.01 (<5); HDL CHOLESTEROL 32.7 MG/DL (>40); LDL CHOLESTEROL 93.1 MG/DL (<100)
[2022-06-29] MEDS: PREGABALIN 75 MG CAP(LYRICA) PO SCH ×2 (08:04→20:10)
[2022-06-29] MEDS: PANTOPRAZOLE 40MG TAB (PROTONIX) PO SCH (08:04)
[2022-06-29] MEDS: ESCITALOPRAM OXALATE 10 MG TAB (LEXAPRO) PO SCH (08:04)
[2022-06-29] MEDS: VITAMIN D 1,000 INTERNATIONAL UNITS TABLET PO SCH (08:05)
[2022-06-29] MEDS: CYANOCOBALAMIN 500 MCG TAB PO SCH (08:05)
[2022-06-29 16:49] VITALS: BP 111/66
[2022-06-29] MEDS: NICOTINE 14 MG/24 HR TRANSDERMAL TD PRN (17:00)
[2022-06-29] MEDS: ARIPiprazole 2 MG TAB PO SCH (20:09)
[2022-06-29] MEDS: traZODone 50 MG TAB PO PRN (20:09)
[2022-06-29] MEDS ORDERED: GI COCKTAIL 50ML BTL(HYOSCYAMINE/MAALOX/LIDOCAINE VISCOUS)(1:3:1) PO ONE (20:55)
[2022-06-29 21:15] LABS: CK-MB VALUE MASS < 1.0 NG/ML (<3.6)
[2022-06-29 21:19] LABS: CPK CREATINE PHOSPHOKINASE 84 U/L (34-145); MB/CK RELATIVE INDEX 1.19 (< OR =4)
[2022-06-30] MEDS: LEVOTHYROXINE 150MCG TABLET (0.15MG) PO SCH (05:56)
[2022-06-30 06:25] VITALS: BP 145/70
[2022-06-30] MEDS: VITAMIN D 1,000 INTERNATIONAL UNITS TABLET PO SCH (08:25)
[2022-06-30] MEDS: PANTOPRAZOLE 40MG TAB (PROTONIX) PO SCH (08:25)
[2022-06-30] MEDS: PREGABALIN 75 MG CAP(LYRICA) PO SCH ×2 (08:25→20:19)
[2022-06-30] MEDS: ESCITALOPRAM OXALATE 10 MG TAB (LEXAPRO) PO SCH (08:26)
[2022-06-30] MEDS: CYANOCOBALAMIN 500 MCG TAB PO SCH (08:26)
[2022-06-30 16:59] VITALS: BP 134/82
[2022-06-30] MEDS: NICOTINE 14 MG/24 HR TRANSDERMAL TD PRN (17:04)
[2022-06-30] MEDS: traZODone 50 MG TAB PO PRN (20:19)
[2022-06-30] MEDS: ARIPiprazole 2 MG TAB PO SCH (20:19)
[2022-07-01] MEDS: LEVOTHYROXINE 150MCG TABLET (0.15MG) PO SCH (06:14)
[2022-07-01 06:46] VITALS: BP 134/84
[2022-07-01] MEDS: ESCITALOPRAM OXALATE 10 MG TAB (LEXAPRO) PO SCH (08:59)
[2022-07-01] MEDS: PREGABALIN 75 MG CAP(LYRICA) PO SCH ×2 (08:59→20:05)
[2022-07-01] MEDS: VITAMIN D 1,000 INTERNATIONAL UNITS TABLET PO SCH (08:59)
[2022-07-01] MEDS: CYANOCOBALAMIN 500 MCG TAB PO SCH (08:59)
[2022-07-01] MEDS: PANTOPRAZOLE 40MG TAB (PROTONIX) PO SCH (08:59)
[2022-07-01 16:31] VITALS: BP 126/73
[2022-07-01] MEDS: NICOTINE 14 MG/24 HR TRANSDERMAL TD PRN (17:18)
[2022-07-01] MEDS: traZODone 50 MG TAB PO PRN (20:05)
[2022-07-02] MEDS: LEVOTHYROXINE 150MCG TABLET (0.15MG) PO SCH (05:42)
[2022-07-02 06:18] VITALS: BP 133/84
[2022-07-02] MEDS: CYANOCOBALAMIN 500 MCG TAB PO SCH (08:08)
[2022-07-02] MEDS: VITAMIN D 1,000 INTERNATIONAL UNITS TABLET PO SCH (08:08)
[2022-07-02] MEDS: ESCITALOPRAM OXALATE 10 MG TAB (LEXAPRO) PO SCH (08:09)
[2022-07-02] MEDS: PANTOPRAZOLE 40MG TAB (PROTONIX) PO SCH (08:09)
[2022-07-02] MEDS: PREGABALIN 75 MG CAP(LYRICA) PO SCH (08:09)
[2022-07-02] MEDS ORDERED: ABIL1TAB11 PO (08:50)
[2022-07-02] MEDS ORDERED: LEVO150T7 PO (08:50)
[2022-07-02] MEDS ORDERED: NICO14PA TD (08:50)
[2022-07-02] MEDS ORDERED: LEXA1TAB2 PO (08:50)
[2022-07-02] MEDS ORDERED: TRAZ-252 PO (08:50)
[2022-07-02] MEDS ORDERED: LYRI75CA PO (08:50)
== END 2022-07-02 11:37 | disposition home or self-care (01) | DRG 751 ==
LOC: M ED 15:50 → M ED INP 06-27 13:45 → M PSY 06-27 16:13
PROVIDERS: ADMIT Student in an Organized Health Care Education/Training Program; ATTEND Student in an Organized Health Care Education/Training Program
DX: F33.2 Major depressive disorder, recurrent severe without psychotic features (principal); R45.851 Suicidal ideations; F43.20 Adjustment disorder, unspecified; F09 Unspecified mental disorder due to known physiological condition; F63.89 Other impulse disorders; E02 Subclinical iodine-deficiency hypothyroidism; Z81.8 Family history of other mental and behavioral disorders; F17.200 Nicotine dependence, unspecified, uncomplicated; K21.9 Gastro-esophageal reflux disease without esophagitis; E55.9 Vitamin D deficiency, unspecified; M19.90 Unspecified osteoarthritis, unspecified site; M54.40 Lumbago with sciatica, unspecified side; Z63.4 Disappearance and death of family member; Z63.8 Other specified problems related to primary support group; Z79.899 Other long term (current) drug therapy; Z88.0 Allergy status to penicillin; Z56.3 Stressful work schedule; Z88.2 Allergy status to sulfonamides; Z91.51 Personal history of suicidal behavior; Z63.6 Dependent relative needing care at home; Z79.890 Hormone replacement therapy

== ENCOUNTER → 2022-08-09 | Outpatient (CLI) | payer BC, OTHER, SELFPAY ==
[~2022-08-09] MED LIST changes: +ABIL1TAB11 PO; +ALPR0.5T3; +ALPR0.5T3 PO; +CYAN100049 PO; +DESV50TA3 PO; +FAMO1TAB11; +FAMO20TA PO; +LATU20TA PO; +LEVO137T2 PO; +LEXA1TAB2; +LEXA1TAB2 PO; +LYRI75CA PO; +NICO14PA TD; +PANT40TA29; +PANT40TA29 PO; +PREG75CA2; +TRAZ-252 PO
== END ==
LOC: M LABSMTC 09:51
PROVIDERS: ATTEND Anesthesiology
DX: Z01.818 Encounter for other preprocedural examination (principal); Z11.52 Encounter for screening for COVID-19

== ENCOUNTER → 2022-08-14 | Day surgery (SDC) | payer OTHER ==
[~2022-08-14] VITALS: Ht 172.7 cm; Wt 93.9 kg
[~2022-08-14] MED LIST changes: +LIDOCAINE 2% 100MG/5ML SDV (FOR ANES.) As Ordered ONE; +NS 1,000 ML IV ONE; +PHENYLephrine 500MCG 5ML (100MCG/ML) SYRINGE As Ordered ONE; +ePHEDrine SULFATE 25 MG/5 ML(5MG/ML) SYRINGE As Ordered ONE; +fentaNYL 100 MCG/2 ML INJECTION As Ordered ONE; +propofoL 200 MG/20 ML VIAL As Ordered ONE
[2022-08-14 11:55] VITALS: BP 117/65
== END | disposition home or self-care (01) ==
LOC: M OPP 09:10
PROVIDERS: ATTEND Internal Medicine Gastroenterology
DX: Z12.11 Encounter for screening for malignant neoplasm of colon (principal); Z86.010 Personal history of colon polyps; Z80.0 Family history of malignant neoplasm of digestive organs; D12.6 Benign neoplasm of colon, unspecified; K57.30 Diverticulosis of large intestine without perforation or abscess without bleeding; K44.9 Diaphragmatic hernia without obstruction or gangrene; K22.2 Esophageal obstruction; K29.70 Gastritis, unspecified, without bleeding; F17.200 Nicotine dependence, unspecified, uncomplicated; G47.33 Obstructive sleep apnea (adult) (pediatric); E03.9 Hypothyroidism, unspecified; G25.81 Restless legs syndrome; Z99.89 Dependence on other enabling machines and devices; Z79.1 Long term (current) use of non-steroidal anti-inflammatories (NSAID); Z79.890 Hormone replacement therapy; Z79.899 Other long term (current) drug therapy; Z88.0 Allergy status to penicillin; Z88.2 Allergy status to sulfonamides
CPT/HCPCS: 43239; 45385; 88305; J2370; J3010

== ENCOUNTER → 2023-08-07 | Outpatient (CLI) | payer OTHER ==
[~2023-08-07] MED LIST changes: -LIDOCAINE 2% 100MG/5ML SDV (FOR ANES.) As Ordered ONE; -NS 1,000 ML IV ONE; -PHENYLephrine 500MCG 5ML (100MCG/ML) SYRINGE As Ordered ONE; -PREG75CA2; +PREG75CA3; -ePHEDrine SULFATE 25 MG/5 ML(5MG/ML) SYRINGE As Ordered ONE; -fentaNYL 100 MCG/2 ML INJECTION As Ordered ONE; -propofoL 200 MG/20 ML VIAL As Ordered ONE
== END ==
LOC: M RAD 07:58
PROVIDERS: ATTEND Nurse Practitioner Adult Health
DX: Z87.891 Personal history of nicotine dependence (principal)

== ENCOUNTER 2024-01-24 18:21 | Emergency (ER) | payer OTHER ==
[~2024-01-24] VITALS: Ht 170.2 cm; Wt 97.2 kg
[2024-01-24 19:20] LABS: BASO # 0.1 10^3/uL (0.0-0.2); BASO % 0.8 % (0.0-1.0); EOS # 0.2 10^3/uL (0.0-0.5); EOS % 2.2 % (0.0-3.0); HEMATOCRIT 38.7 % (36.0-47.0); HEMOGLOBIN 13.5 g/dl (12.0-15.5); LYMPH # 4.1 10^3/uL (1.5-5.0); LYMPH % 42.3 % (24.0-44.0); MEAN CORPUSCULAR HEMOGLOBIN 30.6 pg (27.0-33.0); MEAN CORPUSCULAR HGB CONC 34.9 g/dl (32.0-36.5); MEAN CORPUSCULAR VOLUME 87.8 fl (80.0-96.0); MONO # 0.6 10^3/uL (0.0-0.8); MONO % 6.5 % (2.0-8.0); NEUTROPHILS # 4.6 10^3/uL (1.5-8.5); NEUTROPHILS % 47.9 % (36.0-66.0); PLATELET COUNT, AUTOMATED 315 10^3/uL (150-450); RED BLOOD COUNT 4.41 10^6/uL (4.00-5.40); WHITE BLOOD COUNT 9.6 10^3/uL (4.0-10.0)
[2024-01-24 19:42] LABS: BLOOD UREA NITROGEN 10 MG/DL (9-23); CALCIUM LEVEL 8.8 MG/DL (8.5-10.1); CARBON DIOXIDE LEVEL 25 MMOL/L (20-31); CHLORIDE LEVEL 111 MMOL/L (98-107); CK-MB VALUE MASS < 1.0 NG/ML (<3.6); CPK CREATINE PHOSPHOKINASE 107 U/L (34-145); CREATININE FOR GFR 0.84 MG/DL (0.55-1.30); GLOMERULAR FILTRATION RATE > 60.0 (>51); GLUCOSE, FASTING 94 MG/DL (60-100); MB/CK RELATIVE INDEX 0.93 (< OR =4); POTASSIUM SERUM 3.7 MMOL/L (3.5-5.1); SODIUM LEVEL 141 MMOL/L (136-145)
[2024-01-24] MEDS ORDERED: ISOVUE-370 76% 100ML VIAL As Ordered ONE (21:03)
[2024-01-24 21:14] LABS: CK-MB VALUE MASS < 1.0 NG/ML (<3.6)
[2024-01-24 21:15] LABS: CPK CREATINE PHOSPHOKINASE 105 U/L (34-145); MB/CK RELATIVE INDEX 0.95 (< OR =4)
[2024-01-24] MEDS: ASPIRIN 325 MG TAB PO ONE (21:32)
[2024-01-24 22:31] VITALS: BP 140/71; TEMP 97.8; O2SAT 97
== END 2024-01-24 22:33 | disposition home or self-care (01) ==
LOC: M ED 18:21
DX: R07.89 Other chest pain (principal); Z88.0 Allergy status to penicillin; Z88.2 Allergy status to sulfonamides; E03.9 Hypothyroidism, unspecified; K21.9 Gastro-esophageal reflux disease without esophagitis; Z90.710 Acquired absence of both cervix and uterus; F17.200 Nicotine dependence, unspecified, uncomplicated; Z79.899 Other long term (current) drug therapy
CPT/HCPCS: 36415; 71046; 71275; 80048; 82550; 82553; 84484; 85025; 93005; 93041; 94760; 99284; Q9967

== ENCOUNTER → 2024-02-28 | Outpatient (CLI) | payer OTHER ==
[~2024-02-28] MED LIST changes: +GABA-1172; -GABA-282
== END ==
LOC: M RAD 09:55
PROVIDERS: ATTEND Nurse Practitioner Adult Health
DX: R91.8 Other nonspecific abnormal finding of lung field (principal)

== ENCOUNTER → 2024-07-22 | Outpatient (CLI) | payer OTHER | LOC: M RAD 14:22 | PROVIDERS: ATTEND Nurse Practitioner Adult Health | DX: R05.9 Cough, unspecified (principal) ==

== ENCOUNTER 2024-10-03 20:07 | Emergency (ER) | payer OTHER ==
[~2024-10-03] VITALS: Ht 162.6 cm; Wt 90.9 kg
[~2024-10-03 20:07] MED LIST changes: -PHEN-239; +PHEN37.511
[2024-10-03 20:11] VITALS: TEMP 98.2
[2024-10-03] MEDS: PANTOPRAZOLE 40MG VIAL IV ONE (21:10)
[2024-10-03] MEDS: ONDANSETRON 4MG 2ML VIAL IV ONE (21:25)
[2024-10-03] MEDS: MORPHINE 4 MG/ML 1ML VIAL IV PRN (21:25)
[2024-10-03 21:34] LABS: BASO # 0.1 10^3/uL (0.0-0.2); BASO % 0.6 % (0.0-1.0); EOS # 0.1 10^3/uL (0.0-0.5); EOS % 0.8 % (0.0-3.0); HEMATOCRIT 39.9 % (36.0-47.0); HEMOGLOBIN 13.6 g/dl (12.0-15.5); LYMPH # 2.1 10^3/uL (1.5-5.0); LYMPH % 16.8 % (24.0-44.0); MEAN CORPUSCULAR HEMOGLOBIN 30.2 pg (27.0-33.0); MEAN CORPUSCULAR HGB CONC 34.1 g/dl (32.0-36.5); MEAN CORPUSCULAR VOLUME 88.5 fl (80.0-96.0); MONO # 0.5 10^3/uL (0.0-0.8); MONO % 4.2 % (2.0-8.0); NEUTROPHILS # 9.9 10^3/uL (1.5-8.5); NEUTROPHILS % 77.3 % (36.0-66.0); PLATELET COUNT, AUTOMATED 369 10^3/uL (150-450); RED BLOOD COUNT 4.51 10^6/uL (4.00-5.40); WHITE BLOOD COUNT 12.8 10^3/uL (4.0-10.0)
[2024-10-03] MEDS ORDERED: ISOVUE-370 76% 100ML VIAL As Ordered ONE (21:38)
[2024-10-03 21:57] LABS: LIPASE 37 U/L (12-53)
[2024-10-03 21:58] LABS: CK-MB VALUE MASS < 1.0 NG/ML (<3.6)
[2024-10-03 21:59] LABS: CPK CREATINE PHOSPHOKINASE 117 U/L (34-145); MB/CK RELATIVE INDEX 0.85 (< OR =4)
[2024-10-03 22:00] LABS: ALBUMIN 4.1 G/DL (3.2-5.2); ALKALINE PHOSPHATASE 101 U/L (35-104); ALT/SGPT 21 U/L (7.0-40); AST/SGOT 17 U/L (<34); BILIRUBIN,DIRECT 0.1 MG/DL (<0.4); BILIRUBIN,TOTAL 0.4 MG/DL (0.3-1.2); TOTAL PROTEIN 7.3 G/DL (5.7-8.2)
[2024-10-03 23:34] LABS: CK-MB VALUE MASS < 1.0 NG/ML (<3.6)
[2024-10-03 23:35] LABS: CPK CREATINE PHOSPHOKINASE 108 U/L (34-145); MB/CK RELATIVE INDEX 0.92 (< OR =4)
[2024-10-03 23:40] VITALS: BP 172/84
[2024-10-04] MEDS: SUCRALFATE 1 GM TAB PO ONE (00:27)
[2024-10-04] MEDS: FAMOTIDINE IV BAG 20 MG in IV 1 EA IV ONE (00:27)
[2024-10-04 00:42] VITALS: O2SAT 98
[2024-10-04] MEDS ORDERED: CARA1TAB6 PO (01:45)
[2024-10-04] MEDS ORDERED: PROT1TAB2 PO (01:45)
[2024-10-04] MEDS ORDERED: PEPC1TAB5 PO (01:45)
[2024-10-04] MEDS: MAALOX 30 ML SUSP *UDC PO ONE (01:56)
[2024-10-04] MEDS: LIDOCAINE VISCOUS 2% SOLN 15ML UDC SS ONE (01:56)
== END 2024-10-04 02:15 | disposition home or self-care (01) ==
LOC: M ED 20:07
DX: K30 Functional dyspepsia (principal); I45.10 Unspecified right bundle-branch block; K21.9 Gastro-esophageal reflux disease without esophagitis; E55.9 Vitamin D deficiency, unspecified; E03.9 Hypothyroidism, unspecified; F17.210 Nicotine dependence, cigarettes, uncomplicated; F12.10 Cannabis abuse, uncomplicated; F10.10 Alcohol abuse, uncomplicated; Z88.0 Allergy status to penicillin; Z88.2 Allergy status to sulfonamides; Z79.1 Long term (current) use of non-steroidal anti-inflammatories (NSAID); Z79.899 Other long term (current) drug therapy
CPT/HCPCS: 74177; 76705; 80047; 80076; 82550; 82553; 83690; 84484; 85025; 93005; 93041; 96374; 96375; 99284; J1308; J2405; J2470; Q9967

== ENCOUNTER → 2024-10-08 | Outpatient (CLI) | payer OTHER ==
[~2024-10-08] MED LIST changes: +CARA1TAB6 PO; +LIDO1ADH93 TOP; -LIDO5DIS41 TOP; +PROT1TAB2 PO
== END ==
LOC: M RAD 11:29
PROVIDERS: ATTEND Nurse Practitioner Adult Health
DX: R05.9 Cough, unspecified (principal)

== ENCOUNTER 2024-12-26 23:50 | Emergency (ER) | payer OTHER ==
[~2024-12-26] VITALS: Ht 170.2 cm; Wt 93.2 kg
[2024-12-27 00:37] LABS: BASO # 0.1 10^3/uL (0.0-0.2); BASO % 0.5 % (0.0-1.0); EOS # 0.2 10^3/uL (0.0-0.5); EOS % 1.8 % (0.0-3.0); LYMPH # 2.6 10^3/uL (1.5-5.0); LYMPH % 22.0 % (24.0-44.0); MONO # 0.6 10^3/uL (0.0-0.8); MONO % 5.2 % (2.0-8.0); NEUTROPHILS # 8.3 10^3/uL (1.5-8.5); NEUTROPHILS % 70.2 % (36.0-66.0); PLATELET COUNT, AUTOMATED 335 10^3/uL (150-450)
[2024-12-27 00:51] LABS: ALT/SGPT 18 U/L (7.0-40); AST/SGOT 18 U/L (<34); CALCIUM LEVEL 8.8 MG/DL (8.5-10.1); CARBON DIOXIDE LEVEL 26 MMOL/L (20-31); CHLORIDE LEVEL 108 MMOL/L (98-107); CK-MB VALUE MASS 1.1 NG/ML (<3.6); CREATININE FOR GFR 0.70 MG/DL (0.55-1.30); GLOMERULAR FILTRATION RATE > 90.0 (>51); POTASSIUM SERUM 4.3 MMOL/L (3.5-5.1); SODIUM LEVEL 145 MMOL/L (136-145)
[2024-12-27 01:04] LABS: CPK CREATINE PHOSPHOKINASE 102 U/L (34-145); MB/CK RELATIVE INDEX 1.07 (< OR =4)
[2024-12-27 02:20] LABS: CK-MB VALUE MASS 1.3 NG/ML (<3.6)
[2024-12-27 02:22] LABS: CPK CREATINE PHOSPHOKINASE 123.0 U/L (34-145); MB/CK RELATIVE INDEX 1.05 (< OR =4)
[2024-12-27] MEDS ORDERED: ISOVUE-370 76% 100 ML VIAL As Ordered ONE (02:54)
[2024-12-27] MEDS: ONDANSETRON 4MG 2ML VIAL IV ONE (03:04)
[2024-12-27] MEDS: NS (Normal Saline) 0.9% 1,000 ML IV ONE (03:06)
[2024-12-27] MEDS: KETOROLAC 30 MG/ML 1 ML VIAL IV ONE (03:06)
[2024-12-27 03:50] VITALS: TEMP 97.8
[2024-12-27] MEDS: LevoFLOXacin IV 750 MG in IV 1 EA IV ONE (03:50)
[2024-12-27 04:00] VITALS: BP 203/95
[2024-12-27] MEDS: amLODIPine 10 MG TAB PO ONE (04:00)
[2024-12-27] MEDS: metroNIDAZOLE 500 MG in IV 1 EA IV ONE (04:00)
[2024-12-27 06:00] VITALS: BP 113/63
[2024-12-27] MEDS ORDERED: METR-265 PO (06:07)
[2024-12-27] MEDS ORDERED: LEVO1TAB40 PO (06:07)
[2024-12-27 06:13] VITALS: O2SAT 94
== END 2024-12-27 06:36 | disposition home or self-care (01) ==
LOC: M ED 23:50
DX: K80.20 Calculus of gallbladder without cholecystitis without obstruction (principal); I45.10 Unspecified right bundle-branch block; K21.9 Gastro-esophageal reflux disease without esophagitis; E03.9 Hypothyroidism, unspecified; E55.9 Vitamin D deficiency, unspecified; J44.9 Chronic obstructive pulmonary disease, unspecified; F31.9 Bipolar disorder, unspecified; F41.9 Anxiety disorder, unspecified; F17.210 Nicotine dependence, cigarettes, uncomplicated; Z88.0 Allergy status to penicillin; Z88.2 Allergy status to sulfonamides; Z79.1 Long term (current) use of non-steroidal anti-inflammatories (NSAID); Z79.899 Other long term (current) drug therapy
CPT/HCPCS: 71045; 74177; 80047; 80048; 80076; 82150; 82550; 82553; 83690; 84484; 85025; 93005; 93041; 96374; 96375; 99285; J1836; J1885; J2405; Q9967

== ENCOUNTER → 2025-01-06 | Outpatient (REF) | payer OTHER ==
[~2025-01-06] MED LIST changes: +LEVO1TAB40 PO; +METR-265 PO
== END ==
LOC: M LAB REF 14:12
PROVIDERS: ATTEND Physician Assistant
DX: R19.7 Diarrhea, unspecified (principal)

== ENCOUNTER → 2025-01-29 | Outpatient (REF) | payer OTHER ==
[~2025-01-29] MED LIST changes: -IBUP-1022 PO; +IBUP600T42 PO
== END ==
LOC: M LAB REF 10:28
PROVIDERS: ATTEND Physician Assistant
DX: A04.72 Enterocolitis due to Clostridium difficile, not specified as recurrent (principal)

== ENCOUNTER 2025-03-04 11:58 | Day surgery (SDC) | payer OTHER ==
[~2025-03-04] VITALS: Ht 170.2 cm; Wt 92.6 kg
[~2025-03-04 11:58] MED LIST changes: +CLON0.2T PO; +FLUO40CA PO; +IRBE300T25 PO; +OMEP40CA5 PO; +PREG75CA3 PO
[2025-03-04] MEDS ORDERED: dexAMETHasone 4 MG/ML 1 ML VIAL As Ordered ONE (12:22)
[2025-03-04] MEDS ORDERED: ONDANSETRON 4MG 2ML VIAL As Ordered ONE (12:22)
[2025-03-04] MEDS ORDERED: ROCURONIUM BROMIDE 50MG/5ML VIAL As Ordered ONE (12:23)
[2025-03-04] MEDS ORDERED: KETOROLAC 30 MG/ML 1 ML VIAL As Ordered ONE (12:23)
[2025-03-04] MEDS ORDERED: LIDOCAINE 2% 100 MG/5 ML SDV (FOR ANES.) As Ordered ONE (12:23)
[2025-03-04] MEDS ORDERED: LR 1,000 ML IV SCH ×2 (12:25→15:00)
[2025-03-04] MEDS ORDERED: INDOCYANINE GREEN 25 MG VIAL As Ordered ONE (12:31)
[2025-03-04] MEDS ORDERED: MIDAZOLAM INJ 2 MG/2 ML VIAL As Ordered ONE (13:25)
[2025-03-04] MEDS: INDOCYANINE GREEN 25 MG VIAL IV ONE (13:40)
[2025-03-04] MEDS: ceFAZolin SOD 2 GM IV ONCE IV ONE (13:42)
[2025-03-04] MEDS ORDERED: ACETAMINOPHEN 1000MG/100ML IV BAG As Ordered ONE (14:00)
[2025-03-04] MEDS: HEPARIN SOD 5000 UNITS/ML 1 ML VIAL/SYRINGE SQ ONE (14:02)
[2025-03-04] MEDS ORDERED: SUGAMMADEX SODIUM 200 MG/2 ML VIAL As Ordered ONE (14:53)
[2025-03-04] MEDS ORDERED: HYDROMORPHONE HCL 0.5 MG/0.5 ML SYRINGE IV PRN (15:00)
[2025-03-04] MEDS: ONDANSETRON 4MG 2ML VIAL IV PRN (15:50)
[2025-03-04 16:45] VITALS: BP 123/60; TEMP 97.8; O2SAT 98
== END 2025-03-04 17:11 | disposition home or self-care (01) ==
LOC: M SDC 11:58
PROVIDERS: ATTEND Surgery
DX: K80.10 Calculus of gallbladder with chronic cholecystitis without obstruction (principal); G47.30 Sleep apnea, unspecified; F17.210 Nicotine dependence, cigarettes, uncomplicated; Z88.0 Allergy status to penicillin; Z88.2 Allergy status to sulfonamides; Z79.899 Other long term (current) drug therapy
CPT/HCPCS: 47563; 88304; J0131; J0665; J0688; J1100; J1885; J2250; J2405; J3010; Q9968; S2900

== ENCOUNTER → 2025-03-29 | Outpatient (CLI) | payer OTHER | LOC: M RAD 16:33 | PROVIDERS: ATTEND Nurse Practitioner Adult Health | DX: Z12.2 Encounter for screening for malignant neoplasm of respiratory organs (principal); F17.218 Nicotine dependence, cigarettes, with other nicotine-induced disorders; J43.9 Emphysema, unspecified; K44.9 Diaphragmatic hernia without obstruction or gangrene ==